=== PATIENT | male | born 1990 | race Caucasian/White ===

== ENCOUNTER 2018-12-11 22:56 | Emergency (ER) | payer OTHER ==
[2018-12-11 23:17] VITALS: BP 135/96; PULSE 93; TEMP 98; BMI 28.7
[2018-12-11] MEDS ORDERED: KETOROLAC TROMETHAMINE 60 MG/2 ML VIAL IM ONE (23:47)
[2018-12-12] MEDS ORDERED: KETOROLAC TROMETHAMINE 60 MG/2 ML VIAL ONE (00:08)
--- NOTE | 2018-12-12 01:43 | PDOC ---
History of Present Illness - General Chief Complaint: Pain, Acute Stated Complaint: R SHOULDER PAIN Time Seen by Provider: 12/11/18 23:22 History Source: Patient Exam Limitations: No Limitations - History of Present Illness Initial Comments: 12/12/18 01:38 Patient is a 28 year old male with no pmhx c/o right shoulder pain states he's been having this shoulder/clavicle pain 4 months. States he feels like the clavicle pops out and he gets pain which is constant 6/10 sharp and occasional tingling in the arm. States at times sits he is unable to extend the arm and grabbing his steering wheel. 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 He states that the chair was sliding back and he held braced it on the ramp then had sudden onset of pain in his right shoulder. PMHX: neg PSOCHX: neg etoh, drugs, cig ALL: NKDA GENERAL/CONSTITUTIONAL: No fever or chills. No weakness. No weight change. HEAD, EYES, EARS, NOSE AND THROAT: No change in vision. No ear pain or discharge. No sore throat. CARDIOVASCULAR: No chest pain or shortness of breath. RESPIRATORY: No cough, wheezing, or hemoptysis. GASTROINTESTINAL: No nausea, vomiting, diarrhea or constipation. No rectal bleeding. GENITOURINARY: No dysuria, frequency, or change in urination. MUSCULOSKELETAL: (+) joint pain, (-) muscle swelling or pain. No neck or back pain. SKIN AND BREASTS: No rash or easy bruising. NEUROLOGIC: No headache, vertigo, loss of consciousness, or loss of sensation. PSYCHIATRIC: No depression or anxiety. ENDOCRINE: No increased thirst. No abnormal weight change. HEMATOLOGIC/LYMPHATIC: No anemia, easy bleeding, or history of blood clots. ALLERGIC/IMMUNOLOGIC: No hives or skin allergy. No latex allergy. GENERAL: The patient is awake, alert, and fully oriented, in no acute distress. HEAD: Normal with no signs of trauma. EYES: Pupils equal, round and reactive to light, extraocular movements intact, sclera anicteric, conjunctiva clear. ENT: Ears normal, nares patent, oropharynx clear without exudates. Moist mucous membranes. NECK: Normal range of motion, supple without lymphadenopathy, JVD, or masses. LUNGS: Breath sounds equal, clear to auscultation bilaterally. No wheezes, and no crackles. CHEST: tenderness over the right sternoclavicular joint. HEART: Regular rate and rhythm, normal S1 and S2 without murmur, rub. ABDOMEN: Soft, nontender, normoactive bowel sounds. No guarding, no rebound. No masses. EXTREMITIES: Decreased range of motion extension of the right arm, no edema. No clubbing or cyanosis. No cords, erythema, or tenderness. NEUROLOGICAL: Cranial nerves II through XII grossly intact. Normal speech, normal gait. PSYCH: Normal mood, normal affect. SKIN: Warm, Dry, normal turgor, no rashes or lesions noted. Past History - Past Medical History Allergies/Adverse Reactions: Allergies Allergy/AdvReac Type Severity Reaction Status Date / Time No Known Allergies Allergy Verified 12/11/18 23:17 Home Medications: Ambulatory Orders Valproic Acid [Depakene] 250 mg PO BID 08/31/16 Ondansetron [Zofran -] 4 mg PO TID #21 tablet 09/01/16 Cyclobenzaprine HCl [Flexeril 10 mg] 10 mg PO TID #20 tablet 12/12/18 Ibuprofen [Motrin -] 600 mg PO QID #28 tablet 12/12/18 COPD: No Psychiatric Problems: Yes (bipolar / PTSD) - Immunization History Immunization Up to Date: Yes - Suicide/Smoking/Psychosocial Hx Smoking History: Never smoked Have you smoked in the past 12 months: No Information on smoking cessation initiated: No Hx Alcohol Use: No Drug/Substance Use Hx: No Substance Use Type: None *Physical Exam - Vital Signs Last Vital Signs Temp Pulse Resp BP Pulse Ox 98.0 F 93 H 16 135/96 100 12/11/18 23:15 12/11/18 23:15 12/11/18 23:15 12/11/18 23:15 12/11/18 23:15 Moderate Sedation - Procedure Monitoring Vital Signs: Procedure Monitoring Vital Signs Temperature 98.0 F 12/11/18 23:15 Pulse Rate 93 H 12/11/18 23:15 Respiratory Rate 16 12/11/18 23:15 Blood Pressure 135/96 12/11/18 23:15 O2 Sat by Pulse Oximetry (%) 100 12/11/18 23:15 ED Treatment Course - RADIOLOGY Radiology Studies Ordered: Category Date Time Status CHEST PA & LAT [RAD] Stat Radiology 12/11/18 23:46 Taken CLAVICLE-RIGHT SIDE [RAD] Stat Radiology 12/11/18 23:46 Taken SPINE-CERVICAL [RAD] Stat Radiology 12/11/18 23:46 Taken - Medications Given in the ED: ED Medications Discontinued Medications Generic Name Dose Route Start Last Admin Trade Name Lupe PRN Reason Stop Dose Admin Ketorolac Tromethamine 60 mg 12/11/18 23:47 12/12/18 00:25 Toradol Injection - IM 12/11/18 23:48 60 mg ONCE ONE Administration Medical Decision Making - Medical Decision Making 12/12/18 01:38 Patient is a 28 year old male with no pmhx c/o right shoulder pain states he's been having this shoulder/clavicle pain 4 months. States he feels like the clavicle pops out and he gets pain which is constant 6/10 sharp and occasional tingling in the arm. States at times sits he is unable to extend the arm and grabbing his steering wheel. 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 He states that the chair was sliding back and he held braced it on the ramp then had sudden onset of pain in his right shoulder. symptoms consistent with ligamentous strain Will get an x-ray rule out any fractures versus dislocation. Toradol 60 mg IM for pain, Flexeril 10 mg by mouth Sling. X-ray negative for fracture or dislocation Patient states improvement of pain. Will discharge and referred to orthopedics. I discussed the physical exam findings, ancillary test results and final diagnoses with the patient. I answered all of the patient's questions. The patient was satisfied with the care received and felt comfortable with the discharge plan and treatment plan. The Patient agrees to follow up with the primary care physician within 24-72 hours. *DC/Admit/Observation/Transfer Diagnosis at time of Disposition: Sternoclavicular joint strain Qualifiers: Encounter type: initial encounter Qualified Code(s): S29.011A - Strain of muscle and tendon of front wall of thorax, initial encounter - Discharge Dispostion Disposition: HOME Condition at time of disposition: Stable - Prescriptions Prescriptions: Cyclobenzaprine HCl [Flexeril 10 mg] 10 mg PO TID #20 tablet Ibuprofen [Motrin -] 600 mg PO QID #28 tablet - Referrals Referrals: Smooth Bergman MD [Staff Physician] - - Patient Instructions Printed Discharge Instructions: How to Use a Sling, DI for Muscle Strain Additional Instructions: Your Discharge Instructions: You must call primary care physician within 24 hours to arrange follow-up. Return to the Emergency Department with any new, persistent or worsening symptoms, for fever, chills, SOB, dizziness or any other concerning changes that may occur. - Post Discharge Activity Forms/Work/School Notes: Back to Work
== END 2018-12-12 02:05 | disposition home or self-care (01) ==
LOC: JER 22:56
PROC: 3E0233Z Introduction of Anti-inflammatory into Muscle, Percutaneous Approach (ICD-10-PCS; principal; 2018-12-11)
DX: S29.011A Strain of muscle and tendon of front wall of thorax, initial encounter (principal); X50.0XXA Overexertion from strenuous movement or load, initial encounter; Y93.F2 Activity, caregiving, lifting; Y92.89 Other specified places as the place of occurrence of the external cause; Y99.0 Civilian activity done for income or pay
CPT/HCPCS: 71046-TC-FY; 72050-TC-FY; 73000-TC-RT-FY; 99281-25